=== PATIENT | male | born 1965 | race Caucasian/White ===

== ENCOUNTER → 2020-03-20 | Outpatient (CLI) | payer OTHER ==
[~2020-03-20] MED LIST: ASPIRIN EC325 M1 PO; ASPIRIN EC81 M1 PO; ASPRIMOX 325 M325 MG PO; ATORVASTATIN CA40 MG PO; EFFIENT10 MG PO; FISH OIL 1,0001 EAC5 PO; FLONASE 0.05%50 MCG NASAL; IMDUR 30 MG TAB30 M1 PO; IMDUR 30 MG TAB30 MG PO; LIPITOR40 MG PO; METOPROLOL SUCC25 M1 PO; MULTI-VITAMIN1 EAC5 PO; MULTIVITAMINS1 EAC7 PO; NITROGLYCERIN0.4 MG PO; OMEGA-31000 M1 PO; ONE DAILY MULT1 EAC2 PO; PACERONE 200 M200 M1 PO; RANEXA 500 MG500 M1 PO; REPATHA SY140 MG/1 M SUBQ; TAMIFLU45 MG PO; TOPROL XL25 MG PO; ZYRTEC10 M5 PO
--- NOTE | 2020-03-20 17:37 | CARDNUC ---
[place] [address] CARDIAC NUCLEAR IMAGING REPORT Name: ROSY BAILEY Room: [facility]#: [id number] Admission: 03/20/20 Attend Phys: Vincent Chavis, Discharge: Date of : 67 Date of Service: 03/20/20 1735 Report #: [id number] THIS REPORT FOR: cc: Flavio Lomeli MD, Anthony MD Liston, Michael J. MD [facility] ~ ADDENDUM APPROVED REPORT Imaging Protocol: Rest Tc-99m/Stress Tc-99m 1 day Study performed: 03/20/2020 13:45:00 Indication: CAD Patient Location: Out-Patient Stress Tech: Kasia Davila Stress Nurse: Cielo Coffman RN NM Tech:BRITTNEY Mcintyre Ht: 5 ft 8 in Wt: 172 lbs BSA: 1.92 m2 HR: 60 bpm BP: 139/94 mmHg BMI: 26.14 Rhythm: NSR Medical History Medical History: CAD s/p DC Medications: Aspirin, Metoprolol, , Nitroglycerin Allergies: PCN Cardiac Risk Factors: Age, Hyperlipidemia, HTN Previous Cardiac Procedures: PCI Meds Held (24 hrs): Metoprolol Resting Data Rest SPECT myocardial perfusion imaging was performed in supine position 30 minutes following the intravenous injection of 11.0 mCi of Tc-99m Sestamibi. Time of rest injection: 1355 Date: 03/20/2020 The images were gated to evaluate regional wall motion and calculate left ventricular ejection fraction. Administration Route: IV Administration Site: Right Hand Exercise Stress At peak stress, the patient was injected intravenously with 31.5mCi of Tc-99m Sestamibi. Time of stress injection: 1550 Date: 03/20/2020 [place] [address] CARDIAC NUCLEAR IMAGING REPORT Name: ROSY BAILEY Room: [facility]#: [id number] Admission: 03/20/20 Attend Phys: Vincent Chavis, Discharge: Date of : 67 Date of Service: 03/20/20 1735 Report #: [id number] Administration Route: IV Administration Site: Right Hand Gated Stress SPECT was performed 30 minutes after stress injection. The images were gated to evaluate regional wall motion and calculate left ventricular ejection fraction. Prone imaging was performed. Stress Test Details Stress Test: Exercise stress testing was performed using a Contreras protocol. HR Max Heart Rate (APMHR): 167 bpm Resting HR: 60 bpm Target HR (85% APMHR): 141 bpm Max HR Achieved: 169 bpm % of APMHR: 101 Recovery HR: 86 bpm HR response to stress: Normal HR response to stress BP Resting BP: 139/94 mmHg Max BP: 181/97 mmHg Recovery BP: 152/100 mmHg BP response to stress: Normal blood pressure response to stress. ECG Resting ECG: Sinus Rhythm Stress ECG: Sinus Tachycardia ST Change: Downsloping ST depression Maximum ST Deviation: 1 mm Arrhythmia: None Recovery ECG: Sinus Rhythm Recovery ST Change: None Recovery Arrhythmia: None Clinical The patient tolerated standard Contreras protocol exercise without significant cardiac symptoms. Stress ECG Conclusion The baseline EKG shows sinus rhythm with diffuse ST elevation consistent with repolarization abnormality. EKGs obtained during and post exercise shows sinus tachycardia and sinus rhythm with [address] segment depression at peak exercise that resolves almost immediately in recovery. There were no [place] [address] CARDIAC NUCLEAR IMAGING REPORT Name: ROSY BAILEY Room: [facility]#: [id number] Admission: 03/20/20 Attend Phys: Vincent Chavis, Discharge: Date of : 67 Date of Service: 03/20/20 1735 Report #: [id number] Study Quality Study: Fair Artifact: No artifact Study Data At rest, the left ventricular ejection fraction was 58%.. Post stress, the left ventricular ejection was 30%.. TID = 1.04. Perfusion Perfusion images obtained at rest showed uniform uptake of the radioisotope throughout the myocardium. Post stress perfusion images show a small to moderate sized moderate intensity reversible defect in the region of the basal to mid septum. No other significant fixed or reversible defects are identified. Wall Motion Gated studies at rest to suggest normal resting ejection fraction. Gated images obtained at stress show significant decline in left ventricular systolic function. There appears to be global hypokinesis after stress. Nuclear Conclusion ECG Findings: equivocal Clinical Findings: negative for ischemia Nuclear Findings: positive for ischemia Exercise Capacity: normal Left Ventricular Function: Diminished left ventricular systolic function with stress. Risk Study: moderate to high Stress test suggest ischemia involving the basal to mid septum. Resting ejection fraction appears normal but there appears to be significant decline with stress. Etiology not clear. This is a moderate to high risk study. <Conclusion> The baseline EKG shows sinus rhythm with diffuse ST elevation consistent with repolarization abnormality. EKGs obtained during and post exercise shows sinus tachycardia and sinus rhythm with [address] segment depression at peak [place] [address] CARDIAC NUCLEAR IMAGING REPORT Name: ROSY BAILEY JANETH Room: [facility]#: [id number] Admission: 03/20/20 Attend Phys: Vincent Chavis, Discharge: Date of : 67 Date of Service: 03/20/20 1735 Report #: [id number] almost immediately in recovery. There were no stress-induced arrhythmias. <ELECTRONICALLY SIGNED> By: Vincent Chavis MD, [facility] 03/20/20 173 34 34 Vincent Chavis MD, FACC /INF
== END ==
LOC: M.NUC 13:40
PROVIDERS: ATTEND Internal Medicine Cardiovascular Disease
DX: R00.0 Tachycardia, unspecified (principal); I25.10 Atherosclerotic heart disease of native coronary artery without angina pectoris

== ENCOUNTER 2020-04-06 07:55 | Observation (INO) | payer OTHER ==
[2020-04-06] VITALS (15 sets, daily range): BP systolic 114–142; BP diastolic 57–79
[~2020-04-06] VITALS: Ht 172.7 cm; Wt 79.8 kg
--- NOTE | ~2020-04-06 | H ---
[address] [address] HISTORY AND PHYSICAL Name: ROSY BAILEY Room: [address] Luis Ferguson#: [id number] Admission: 04/06/20 Attend Phys: Adan Noel MD, Discharge: 04/07/20 Date of : 67 Report #: [id number] THIS REPORT FOR: //name// cc: Flavio Lomeli MD, Anthony MD ~ THIS REPORT FOR: //name// Please refer to the History and Physical performed in the physician's office. By: [id number] Records Staff [facility] /KEILA
[~2020-04-06 07:55] MED LIST changes: -REPATHA SY140 MG/1 M SUBQ
[2020-04-06 08:58] LABS: HEMATOCRIT 47.7 % (42.0-52.0); HEMOGLOBIN 16.2 gm/dL (14.0-18.0); MCH 29.7 pg (26.0-34.0); MCHC 33.9 g/dL (28.0-37.0); MCV 87.6 fL (80.0-100.0); MPV 7.2 fl. (7.2-11.1); RBC 5.44 mil/uL (4.50-6.00); RDW-CV 13.8 % (10.5-14.5); WBC 7.6 thou/uL (4.0-11.0)
[2020-04-06 09:02] LABS: ANION GAP 7 mmol/L (7-16); BUN 12 mg/dL (7-18); CALCIUM 8.9 mg/dL (8.5-10.1); CHLORIDE 103 mmol/L (98-107); CO2 29 mmol/L (21-32); CREATININE 0.7 mg/dL (0.6-1.3); GLUCOSE 93 mg/dL (70-99); POTASSIUM 4.6 mmol/L (3.5-5.1); SODIUM 139 mmol/L (136-145)
[2020-04-06 09:06] LABS: ALKALINE PHOSPHATASE 86 U/L (46-116); CHOLESTEROL 113 mg/dL (<200); HDL CHOLESTEROL 61 mg/dL (>40); LDL CHOLESTEROL 33 mg/dL (<100); SGOT 27 U/L (15-37); SGPT 56 U/L (30-65); TC:HDL 1.9 Ratio (Not establshd); TOTAL BILIRUBIN 0.4 mg/dL (<0.1-1.0); TOTAL PROTEIN 7.5 g/dL (6.4-8.2); TRIGLYCERIDE 98 mg/dL (<150); VLDL 20 mg/dL (<40)
[2020-04-06 09:10] LABS: SERUM ASSESSMENT Clear
[2020-04-06 09:21] LABS: APTT 25.3 Seconds (25.0-31.3); PROTIME 10.3 Seconds (9.20-11.50)
--- NOTE | 2020-04-06 15:41 | EKG ---
[place] [address] ELECTROCARDIOGRAM REPORT Name: ROSY BAILEY Room: [address]R.#: [id number] Admission: 04/06/20 Attend Phys: Renetta Rivero Discharge: Date of : 67 Date of Service: 04/06/20 0904 Report #: [id number] THIS REPORT FOR: //name// [place] Test Date: 2020-04-06 Test Time: 09:04:43 Pat Name: ROSY BAILEY Department: Room: [facility] Gender: M Receptionist Telephone Operator: WALDO : 1965 Requested By: Adan Noel Order Number: [id number] Reading MD: Adan Noel Measurements Intervals [place] Rate: 57 P: 7 TX: 195 QRS: 20 QRSD: 106 T: 55 QT: 415 QTc: 404 Interpretive Statements Sinus rhythm Probable left ventricular hypertrophy ST elev, probable normal early repol pattern Compared to ECG 11/29/2018 01:49:33 Sinus bradycardia no longer present Left bundle-branch block no longer present ST (T wave) deviation still present Electronically Signed On 04-06-2020 15:40:44 CDT by Adan Noel [email or web address] <ELECTRONICALLY SIGNED> By: Adan Noel MD, [facility] 04/06/20 1540 0904 0904 Adan Noel MD, FAC /EPI
--- NOTE | 2020-04-06 15:46 | EKG ---
[place] [address] ELECTROCARDIOGRAM REPORT Name: ROSY BAILEY Room: [address] M.R.#: [id number] Admission: 04/06/20 Attend Phys: Renetta Rivero Discharge: Date of : 67 Date of Service: 04/06/20 1258 Report #: [id number] THIS REPORT FOR: //name// 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: : 1965 Requested By: Adan Noel Order Number: [id number] Reading MD: Adan Noel Measurements Intervals [place] Rate: 59 P: -1 GA: 193 QRS: 31 QRSD: 108 T: 53 QT: 424 QTc: 420 Interpretive Statements Sinus rhythm Probable left ventricular hypertrophy ST elev, probable normal early repol pattern Baseline wander in lead(s) V3 Compared to ECG 04/06/2020 09:04:43 ST (T wave) deviation still present Electronically Signed On 04-06-2020 15:45:57 CDT by Adan Noel [email or web address] <ELECTRONICALLY SIGNED> By: Adan Noel MD, [facility] 04/06/20 1545 1258 1258 Adan Noel MD, FAC /EPI
--- NOTE | 2020-04-06 15:50 | NUR ---
PT ADMITTED TO ROOM 221 VIA CART FROM IT TEACHER AT APPROX 1400, REPORT RECEIVED FROM GABBY BOYD. PT CAME OFF TABLE AT APPROX 1110, VSS UPON ARRIVAL ON FLOOR. PT ORIENTED TO ROOM AND CALL LIGHT, ADMISSION ASSESSMENT AND HX COMPLETED CHARTED. PT HAD 1 OVERLAPPING STENT PLACED IN LAD, CATH SITE TO RT GROIN C/D/I W/ NO HEMATOMA OR DRAINAGE NOTED AND GAUZE W/ A TRANSPARENT DRESSING IN PLACE. PT BLADDER SCANNED W/ OVER 1000 ML IN BLADDER, PT TRIED TO URINATE IN URINAL WHILE MAINTAINING BEDREST STATUS W/ NO SUCCESS. PT STRAIGHT CATHED W/ NO SUCCESS, RIDER CATHETER ATTEMPTED ALSO W/ NO SUCCESS, COUDE CATHETER OBTAINED AND USED W/ SUCCESS TO DRAIN PT'S BLADDER. PT ON BEDREST STATUS UNTIL 1710 PER IT TEACHER NURSE. PT STATES NO PAIN OR SHORTNESS OF BREATH. HOURLY ROUNDING OBSERVED, WILL CONTINUE POC.
--- NOTE | 2020-04-06 17:47 | NUR ---
ASSITED SWETA PIERRE WITH RIDER CATHETER INSERTION SHE WAS UNABLE TO ESTABLISH RIDER. ATTEMPTED WITH A 16F RIDER FROM SUPPLY ROOM HOWEVER UNABLE TO PASS THROUGH TO BLADDER. BLADDER SCAN REVEALED OVER 1500ML IN BLADDER SO WENT TO SURGERY AND OBTAINED 16F COUDE WHICH I WAS THEN SUCCESSFULY ABLE TO USE TO ESTABLISH UNRINARY CATHETER. IMMEDIATELY DRAINED AROUND 2LITERS OF CLEAR YELLOW URINE AND PT'S ABDOMEN BECAME LESS DISTENDED AND FIRM. COUDE WAS REMOVED BY SWETA PIERRE ONCE PT WAS OFF BEDREST. ASSESS PT FOR ANY DISCOMFORT OR BLEEDING FROM PENIS AND PT DENIED ANY DISCONFORT OR BLEEDING
--- NOTE | 2020-04-06 17:51 | NUR ---
NO ACUTE CHANGES THROUGHOUT SHIFT, VSS AND RT GROIN CATH SITE CONTINUES TO BE C/D/I W/ NO HEMATOMA OR DRAINAGE NOTED. PT HAS NO C/O PAIN OR SHORTNESS OF BREATH. PT GOT UP W/ NURSE IN ROOM AND WAS STEADY ON FEET W/ NO C/O DIZZINESS. RIDER DRAINED 1150 CLR YELLOW URINE OUT AND WAS DC'D. FLUIDS FINISHED INFUSING AND PT IS NOW SL. HOURLY ROUNDING OBSERVED, WILL CONTINUE POC.
[2020-04-06] MEDS ORDERED: TOPROL XL25 MG PO (18:39)
[2020-04-07] VITALS: BP 128/66
[2020-04-07 04:00] VITALS: BP 120/74
[2020-04-07 04:53] LABS: HEMATOCRIT 44.3 % (42.0-52.0); MCHC 33.9 g/dL (28.0-37.0); MCV 88.6 fL (80.0-100.0); MPV 7.4 fl. (7.2-11.1); RDW-CV 13.9 % (10.5-14.5); WBC 8.5 thou/uL (4.0-11.0)
[2020-04-07 05:16] LABS: ALBUMIN 3.5 g/dL (3.4-5.0); CALCIUM 8.6 mg/dL (8.5-10.1); CREATININE 0.8 mg/dL (0.6-1.3); POTASSIUM 3.9 mmol/L (3.5-5.1); TOTAL BILIRUBIN 0.6 mg/dL (<0.1-1.0); TOTAL PROTEIN 6.7 g/dL (6.4-8.2); TROPONIN-I LEVEL 0.25 ng/mL (<0.06)
--- NOTE | 2020-04-07 06:49 | NUR ---
PT SLEPT MOST OF SHIFT. ASSESSMENT DOCUMENTED. MEDS GIVEN PER E-DEC. IV PATENT, FLUIDS INFUSING. NO REPORTS OF PAIN. RIGHT GROIN SITE REMAINED C/D/I. WILL CONTINUE WITH PLAN OF CARE.
[2020-04-07 08:00] VITALS: BP 132/76
--- NOTE | 2020-04-07 08:51 | NUR ---
ASSUMED PT CARE AT 0730, PT RESTING IN BED, HAS NO C/O PAIN OR SHORTNESS OF BREATH. NS WAS RUNNING BUT FINISHED INFUSING UPON ASSESSMENT OF PT, PT NOW SL. RT GROIN CATH SITE CONTINUES TO BE C/D/I W/ NO HEMATOMA OR DRAINAGE NOTED. PT GOAL IS TO WORK W/ CARDIOLOGY ON DC TO HOME TODAY. AM ASSESSMENT CHARTED, MEDS PER MAR, HOURLY ROUNDING OBSERVED, PT IS UP AD EMERSON, WILL CONTINUE POC.
[2020-04-07] MEDS ORDERED: EFFIENT10 MG PO (09:51)
[2020-04-07] MEDS ORDERED: REPATHA SY140 MG/1 M SUBQ (09:54)
--- NOTE | 2020-04-07 10:38 | NUR ---
DC ORDERS RECEIVED. DC INSTRUCTIONS, CARE NOTES, SCRIPTS AND F/U APPTS GIVEN TO PT, PT COMMUNICATES UNDERSTANDING OF DC TEACHING. IV AND MAJOR LEAGUE BASEBALL UMPIRE REMOVED. PT DC'D BY WC W/ NURSING STAFF AND TO 'S PERSONAL VEHICLE AT APPROX 1015.
--- NOTE | 2020-04-07 11:18 | CARD ---
[address] [address] CARDIAC CATH REPORT Name: LEOBRADLEYROSY D Room: [address] Luis Ferguson#: [id number] Admission: 04/06/20 Attend Phys: Adan Noel MD, Discharge: 04/07/20 Date of : 67 Report #: [id number] THIS REPORT FOR: //name// cc: Flavio Lomeli MD, Anthony MD ~ APPROVED REPORT Study performed: 04/06/2020 09:10:24 Patient Details Patient Status: Out-Patient Room #: The patient is a 54 year-old male Event Personnel Jd Brewer RTR Monitor, Joseline Arnett RN RN, Desiree Allen RN RN, Adan Noel Servicenow Administrator, Cathryn Chan RTR Scrub Procedures Performed Left Heart Cath w/or w/o Coronaries [id number] [facility] Hemostasis w/ Angioseal Atherectomy w/wo Plasty Sgl LAD [id number] ATHSINGLE Indication Positive stress test Risk Factors Family History, Hypercholesterolemia Previous Procedures/Diagnoses Previous PCI Admission/Lab Medications/Medications given during procedure Fentanyl IV 25 mcg, Midazolam (Versed) IV 1 mg, Lidocaine Subcut 20 ml, Angiomax IV 13 ml, Angiomax IV 28.7 ml per hr, Angiomax IV 3 ml, Nitroglycerin IC 200 mcg Procedure Narrative The patient was brought electively to the Cardiac Catheterization Laboratory and was prepped and draped in a sterile manner. The right femoral was infiltrated with 2% Lidocaine subcutaneous anesthesia. A [place] 6 FR sheath was inserted into the right femoral artery. Coronary angiography was performed using coronary diagnostic catheters. The right coronary system was accessed and visualized with a Diagnostic 3DRC 6Fr catheter. The left coronary system was accessed and visualized with a Diagnostic JL 4 6Fr [place] [address] CARDIAC CATH REPORT Name: ROSY BAILEY Room: [address]#: [id number] Admission: 04/06/20 Attend Phys: Adan Noel MD, Discharge: 04/07/20 Date of : 67 Report #: [id number] ventricle was accessed and visualized with a Diagnostic Pigtail Straight 6Fr catheter. Left ventricular/Aortic Valve gradient assessed via catheter pullback. Left ventriculogram was performed in TEJEDA projection. Pre-demployment femoral angiogram was performed . Closure device was deployed with a 6 Fr Angioseal. The patient tolerated the procedure well and there were no complications associated with the procedure. There was no hematoma. Intraoperative Conscious Sedation Sedation start time: 954 Case end Time: 1108 Fentanyl 25 mcg Versed 1 mg Fluoro Time: 14.1 minutes Dose: DAP 73942 cGycm2 1305.55 mGy Contrast Type and Amount: Visipaque 210 ml Diagnostic Cath Left Main 0% narrowing LAD 80% focal proximal LAD in-stent restenosis with 90% narrowing of a previously stented first septal perforating branch of the LAD Circumflex 0% narrowing Right Coronary 30% proximal narrowing with 100% distal occlusion with right to right collaterals filling a skeleton of the distal right coronary artery Left Ventriculography The left ventricle is normal in size with contractility. The left ventricular ejection fraction is estimated to be 50%. Left ventricular wall motion abnormalities are present. There is no mitral insufficiency. Anterolateral hypokinesis is noted Hemodynamics The aortic pressure is 134/66 mmHg with a mean of 88 mmHg. The left ventricular pressure is 140/2 mmHg with a mean of mmHg. The left ventricular end diastolic pressure is 11 mmHg. There was no gradient across the aortic valve upon pullback. PCI Technique Lesion Anticoagulation was achieved with Angiomax. Percutaneous coronary intervention was performed on the mid left anterior descending artery segment. The lesion stenosis prior to intervention was 80% with EDE 3 flow. A 6F XB LAD 3.5 Guide Catheter was used to engage the Left ostium. A BMW 190cm Interventional Guidewire was used [place] [address] CARDIAC CATH REPORT Name: ROSY BAILEY Room: [address] Luis M.Grecia#: [id number] Admission: 04/06/20 Attend Phys: Adan Noel MD, Discharge: 04/07/20 Date of : 67 Report #: [id number] BALLOON DILATION A Balloon catheter NC Euphora 3.0x12 was inserted and inflated up to 16.00atm for 14seconds. Additional Inflation: 16.00atm for 10seconds. Additional Inflation: 18.00atm for 13seconds. A Cutting Balloon Catheter Angiosculpt PTCA 3.0 x 10 was inserted and inflated to 12.00 lolita for 22 seconds. Additional Inflation : 12 lolita for 18 seconds. STENT DEPLOYMENT A drug-eluting stent Chaparro RX Stent 3.0X12mm was inserted and inflated up to 15.00atm for 13seconds. Additional Inflation: 16.00atm for 15seconds. Final angiography reveals 0 % stenosis with EDE 3 flow. Conclusion 1. Significant coronary artery disease characterized by the following: A 80% focal proximal LAD stenosis within a previously deployed stent; there was 90% stenosis of a previously stented first septal supply chain logistics manager branch of the LAD B total occlusion of the distal right coronary artery with right to right collaterals filling a skeleton of the distal right coronary vessel 2. Mild impairment in global LV function, estimated ejection fraction being 50% with anterolateral hypokinesis 3. Normal left-sided hemodynamic study 4. Successful angioplasty atherectomy and stenting of the proximal LAD with 0% residual narrowing and EDE-3 flow to the distal vessel Recommendations Cardiac Risk Reduction Program Aggressive Medical Therapy Medications Administered Aspirin (any) [place] [address] CARDIAC CATH REPORT Name: ROSY BAILEY Room: [address] JUAN Ferguson#: [id number] Admission: 04/06/20 Attend Phys: Adan Noel MD, Discharge: 04/07/20 Date of : 67 Report #: [id number] Diagnostic Cath Approved by: Adan Noel MD Date/Time: 04/07/2020 11:15:54 <ELECTRONICALLY SIGNED> By: dAan Noel MD, [facility] 04/07/20 1117 16 1117Adan Noel MD, [facility] /INF
--- NOTE | 2020-04-07 11:33 | D ---
[facility] [address] [place] [address] DISCHARGE SUMMARY Name: ROSY BAILEY Amy Room: [address] Luis Ferguson#: [id number] Admission: 04/06/20 Attend Phys: Adan Noel MD, Discharge: 04/07/20 Date of : 67 Report #: [id number] THIS REPORT FOR: //name// cc: Flavio Lomeli MD, Anthony MD ~ THIS REPORT FOR: //name// CC: Flavio Noel DATE OF SERVICE: 04/07/2020 FINAL DISCHARGE DIAGNOSES: 1. Abnormal nuclear stress test. 2. Coronary artery disease. 3. Status post PCI to the LAD. 4. Hyperlipidemia. 5. Hypertension. 6. History of ventricular tachycardia. PROCEDURES: 04/06/2020 -- left heart catheterization, left ventriculography, selective coronary arteriography and percutaneous coronary intervention of the proximal LAD with arthrotomy/atherectomy and stenting of the proximal LAD. HOSPITAL COURSE: The patient is a very pleasant 54-year-old male with premature and aggressive coronary artery disease, status post remote PCIs and ventricular tachycardia with his initial ischemic events. More recently, he had an abnormal nuclear stress test with a septal and apical ischemia. Also, he was noted to have a transient ischemic dilatation on the radionuclide examination. In this context, there were known risk factors of hyperlipidemia and hypertension, I elected to perform cardiac catheterization on 04/06/2020. That study revealed 80% focal proximal LAD in-stent restenosis with total occlusion of the distal right coronary artery with yhumc-vh-teset collaterals filling the distal right coronary artery. Given this data, I proceeded with angioplasty, arthrotomy/atherectomy and deployment of drug-eluting stent in the proximal LAD with 0% residual narrowing and EDE 3 flow to the distal vessel. The patient did well post-procedurally. Troponin rising inconsequentially to 0.25. Sodium 139, potassium 3.9, BUN 12, creatinine 0.8, glucose 86. Hemoglobin 15.0, white blood cell count 8500 with 264,000 [place] [address] DISCHARGE SUMMARY Name: ROSY BAILEY [address]#: [id number] Admission: 04/06/20 Attend Phys: Adan Noel MD, Discharge: 04/07/20 Date of : 67 Report #: [id number] He ambulated in the hallways without difficulty and there was good hemostasis at the right femoral site of catheterization. DISCHARGE MEDICATIONS: He was discharged to home on the following medications: Aspirin 162 mg daily, metoprolol succinate 12.5 mg daily, multivitamin tablet 1 tablet daily, omega-3 fatty acids or fish oil 1000 mg daily, prasugrel or Effient 10 mg daily with a 60 mg blayne-procedural dose, Repatha injections twice monthly. He also takes cetirizine 10 mg daily on a p.r.n. basis. The patient is discharged to home in stable condition on the aforementioned medications with followup with myself on 05/03/2020 at 10:00 a.m. Thus, the patient is discharged to home in stable condition on 04/07/2020. <ELECTRONICALLY SIGNED> By: Adan Noel MD, FACC 04/07/20 1133 1004 1025Adan Noel MD, FAC /nt
--- NOTE | 2020-04-09 10:33 | EKG ---
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 Pain Coordinator: NGUYỄN : 1965 Requested By: Adan Noel Order Number: [id number] Reading MD: Amarjit Locke Measurements Intervals [place] Rate: 58 P: 15 [place]: 181 QRS: 21 QRSD: 111 T: 57 QT: 426 QTc: 419 Interpretive Statements Sinus rhythm Borderline low voltage, extremity leads Probable left ventricular hypertrophy ST elev, probable normal early repol pattern Compared to ECG 04/06/2020 12:58:44 ST (T wave) deviation still present Electronically Signed On 04-09-2020 10:32:34 CDT by Amarjit Locke [email or web address] <ELECTRONICALLY SIGNED> By: Amarjit Locke MD, FAC 04/09/20 1032 0434 0434 Amarjit Locke MD, FAC /EPI
== END 2020-04-07 10:30 | disposition home or self-care (01) ==
LOC: M.CL 07:55 → M.TBA-CV 11:32 → M.2W 14:10
PROVIDERS: ADMIT Internal Medicine; ATTEND Internal Medicine
DX: I25.10 Atherosclerotic heart disease of native coronary artery without angina pectoris (principal); I10 Essential (primary) hypertension; I47.2 Ventricular tachycardia; R94.39 Abnormal result of other cardiovascular function study; E78.5 Hyperlipidemia, unspecified

== ENCOUNTER → 2020-11-19 | Outpatient (CLI) | payer OTHER ==
[~2020-11-19] VITALS: Ht 175.3 cm; Wt 82.6 kg
[2020-11-19] VITALS (12 sets, daily range): BP systolic 115–129; BP diastolic 56–80
[~2020-11-19] MED LIST changes: +NITROSTAT0.4 M1 SUBLING; +REPATHA SY140 MG/1 M SUBQ
[2020-11-19 08:31] LABS: HEMATOCRIT 48.8 % (42.0-52.0); HEMOGLOBIN 15.9 gm/dL (14.0-18.0); MCH 28.8 pg (26.0-34.0); MCHC 32.5 g/dL (28.0-37.0); MCV 88.5 fL (80.0-100.0); MPV 7.2 fl. (7.2-11.1); RBC 5.51 mil/uL (4.50-6.00); RDW-CV 13.5 % (10.5-14.5); WBC 6.1 thou/uL (4.0-11.0)
[2020-11-19 08:47] LABS: APTT 25.4 Seconds (25.0-31.3); PROTIME 10.4 Seconds (9.20-11.50)
[2020-11-19 09:00] LABS: ANION GAP 10 mmol/L (7-16); BUN 18 mg/dL (7-18); CALCIUM 9.5 mg/dL (8.5-10.1); CHLORIDE 104 mmol/L (98-107); CO2 26 mmol/L (21-32); CREATININE 0.8 mg/dL (0.6-1.3); GLUCOSE 95 mg/dL (70-99); POTASSIUM 4.3 mmol/L (3.5-5.1); SODIUM 140 mmol/L (136-145)
[2020-11-19 09:04] LABS: ALBUMIN 3.9 g/dL (3.4-5.0); ALKALINE PHOSPHATASE 90 U/L (46-116); CHOLESTEROL 97 mg/dL (<200); HDL CHOLESTEROL 52 mg/dL (>40); LDL CHOLESTEROL 29 mg/dL (<100); SERUM ASSESSMENT Clear; SGOT 19 U/L (15-37); SGPT 36 U/L (30-65); TC:HDL 1.9 Ratio (Not establshd); TOTAL BILIRUBIN 0.3 mg/dL (<0.1-1.0); TOTAL PROTEIN 7.3 g/dL (6.4-8.2); TRIGLYCERIDE 81 mg/dL (<150); VLDL 16 mg/dL (<40)
--- NOTE | 2020-11-19 17:11 | EKG ---
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: : 1965 Requested By: Adan Noel Order Number: [id number] Reading MD: Adan Noel Measurements Intervals [place] Rate: 52 P: 3 IL: 202 QRS: 15 QRSD: 108 T: 50 QT: 413 QTc: 384 Interpretive Statements Sinus rhythm Borderline prolonged IL interval Probable left ventricular hypertrophy ST elev, probable normal early repol pattern Compared to ECG 04/07/2020 04:34:33 No significant changes Electronically Signed On 11-19-2020 17:11:18 AUTO MECHANIC SUPERVISOR by Adan Noel [email or web address] <ELECTRONICALLY SIGNED> By: Adan Noel MD, [facility] 11/19/20 1711 1 1 Adan Noel MD, [facility] /EPI
--- NOTE | 2020-11-20 17:34 | CARD ---
[address] [address] CARDIAC CATH REPORT Name: ROSY BAILEY Room: [facility] MICHAEL RileyAnthony#: [id number] Admission: 11/19/20 Attend Phys: Adan Noel MD, Discharge: Date of : 67 Report #: [id number] THIS REPORT FOR: cc: Flavio Lomeli MD, Anthony MD ~ Adan Noel MD [facility] APPROVED REPORT Study performed: 11/19/2020 09:00:03 Patient Details Patient Status: Out-Patient Room #: The patient is a 55 year-old male Event Personnel Adan Noel [employer] Worker, Nasima Ivey Aquatic Performer, Maya Chavarria RTR Monitor, Jd Brewer RTR Scrub Procedures Performed Art Access - R femoral artery, Left Heart Cath w/or w/o Coronaries LHC , Hemostasis w/ Mynx Indication Positive stress test Risk Factors Family History, Hypercholesterolemia Previous Procedures/Diagnoses Previous PCI Procedure Narrative The patient was brought electively to the Cardiac Catheterization Laboratory and was prepped and draped in a sterile manner. The right femoral was infiltrated with 1% Lidocaine subcutaneous anesthesia. A 6F Bradford sheath was inserted into the right femoral artery. Coronary angiography was performed using coronary diagnostic catheters. The right coronary system was accessed and visualized with a 6F 3DRC catheter. The left coronary system was accessed and visualized with a 6F JL4 catheter. The left ventricle was accessed and visualized with a 6F Pigtail catheter. Left ventricular/Aortic Valve gradient assessed via catheter pullback. Left ventriculogram was performed in TEJEDA projection. Pre-[place] [address] CARDIAC CATH REPORT Name: ROSY BAILEY Room: [facility]#: [id number] Admission: 11/19/20 Attend Phys: Adan Noel MD, Discharge: Date of : 67 Report #: [id number] was performed . Closure device was deployed with a 6 Fr Mynx. The patient tolerated the procedure well and there were no complications associated with the procedure. There was no hematoma. Intraoperative Conscious Sedation Sedation start time: 09:59 Case end Time: 10:32 Fentanyl 25 mcg Versed 2 mg Fluoro Time: 3.9 minutes Dose: DAP 62524 cGycm2 660 mGy Contrast Type and Amount: Visipaque 85 ml Diagnostic Cath Left Main 0% narrowing LAD 20% ostial narrowing with a widely patent proximal LAD stent; there was 90% stenosis of the previously stented first septal perforating branch of the LAD Circumflex Nondominant vessel with 20% proximal narrowing Right Coronary Dominant vessel which is 100% occluded beyond the acute margin with right to right the left to right collaterals to the distal right coronary artery Left Ventriculography The left ventricle is normal in size with normal contractility. The left ventricular ejection fraction is estimated to be 60%. Left ventricular wall motion abnormalities are present. There is no mitral insufficiency. There is subtle mid anterior hypokinesis noted. Hemodynamics The aortic pressure is 122/66 mmHg with a mean of 84 mmHg. The left ventricular pressure is 122/-2 mmHg with a mean of mmHg. The left ventricular end diastolic pressure is 8 mmHg. Conclusion 1. Coronary artery disease characterized by the following: A 20% ostial LAD narrowing with a widely patent proximal LAD stent; there was 90% stenosis of a previously stented first septal perforating branch of the LAD B 20% proximal circumflex narrowing C dominant right coronary artery [place] [address] CARDIAC CATH REPORT Name: [facility]AILEY [id number] Admission: 11/19/20 Attend Phys: Adan Noel MD, Discharge: Date of : 67 Report #: [id number] the acute margin with right to right and left to right collaterals filling the distal right coronary artery 2. Normal global left ventricular systolic function, estimated ejection fraction being 60% with subtle mid anterior hypokinesis 3. Normal left-sided hemodynamic study. Recommendations Cardiac Risk Reduction Program Aggressive Medical Therapy Diagnostic Cath Approved by: Adan Noel MD Date/Time: 11/20/2020 17:33:32 <ELECTRONICALLY SIGNED> By: Adan Noel MD, [facility] 11/20/20 1734 1734 1734Adan Noel MD, [facility] /INF
== END | disposition home or self-care (01) ==
LOC: M.CL 07:53
PROVIDERS: ATTEND Internal Medicine
DX: R94.39 Abnormal result of other cardiovascular function study (principal); I25.10 Atherosclerotic heart disease of native coronary artery without angina pectoris; E78.00 Pure hypercholesterolemia, unspecified; Z98.890 Other specified postprocedural states; Z79.899 Other long term (current) drug therapy; Z79.82 Long term (current) use of aspirin; Z20.822 Contact with and (suspected) exposure to COVID-19